=== PATIENT | female | born 1985 | race Caucasian/White ===

== ENCOUNTER 2017-05-31 22:16 | Emergency (ER) | payer OTHER ==
[~2017-05-31] VITALS: Ht 157.5 cm; Wt 56.7 kg
[2017-05-31] MEDS ORDERED: BACTRIM DS TAB1 EACH PO (22:50)
[2017-05-31] MEDS ORDERED: KEFLEX500 M1 PO (22:50)
[2017-05-31 23:11] VITALS: BP 118/68
== END 2017-05-31 23:11 | disposition home or self-care (01) ==
LOC: M.ERS 22:16
DX: L03.113 Cellulitis of right upper limb (principal); F17.210 Nicotine dependence, cigarettes, uncomplicated

== ENCOUNTER 2017-11-23 12:49 | Emergency (ER) | payer OTHER ==
[~2017-11-23] VITALS: Ht 157.5 cm; Wt 54.4 kg
[~2017-11-23 12:49] MED LIST: BACTRIM DS TAB1 EACH PO; KEFLEX500 M1 PO
[2017-11-23 14:04] VITALS: BP 112/69
== END 2017-11-23 14:06 | disposition home or self-care (01) ==
LOC: M.ERS 12:49
DX: S16.1XXA Strain of muscle, fascia and tendon at neck level, initial encounter (principal); M54.6 Pain in thoracic spine; F17.210 Nicotine dependence, cigarettes, uncomplicated; V89.2XXA Person injured in unspecified motor-vehicle accident, traffic, initial encounter; Y93.89 Activity, other specified; Y92.89 Other specified places as the place of occurrence of the external cause; Y99.8 Other external cause status

== ENCOUNTER 2021-03-20 07:48 | Emergency (ER) | payer OTHER ==
[~2021-03-20] VITALS: Ht 157.5 cm; Wt 65.8 kg
[2021-03-20 08:54] LABS: ABSOLUTE BASOPHILS 0.1 thou/uL (0.0-0.2); ABSOLUTE EOSINOPHILS 0.2 thou/uL (0.0-0.7); ABSOLUTE LYMPHOCYTES 1.8 thou/uL (0.8-5.3); ABSOLUTE MONOCYTES 0.5 thou/uL (0.0-1.2); ABSOLUTE NEUTROPHILS 5.6 thou/uL (1.6-8.1); BASOPHILS 0.7 %; EOSINOPHILS 2.4 %; HEMATOCRIT 40.6 % (37.0-47.0); HEMOGLOBIN 13.8 gm/dL (12.0-15.0); LYMPHOCYTES 21.8 %; MCH 31.9 pg (26.0-34.0); MCHC 34.1 g/dL (28.0-37.0); MCV 93.7 fL (80.0-100.0); MONOCYTES 5.8 %; MPV 11.6 fl. (7.2-11.1); NUCLEATED RBCS 0 /100WBC; PLATELET COUNT* 196 thou/uL (150-400); POLYS 69.3 %; RBC 4.33 mil/uL (4.20-5.00); RDW-CV 12.3 % (10.5-14.5); WBC 8.1 thou/uL (4.0-11.0)
[2021-03-20 08:59] LABS: CALCIUM 8.4 mg/dL (8.5-10.1); CREATININE 0.5 mg/dL (0.6-1.3); POTASSIUM 4.2 mmol/L (3.5-5.1)
[2021-03-20 09:04] LABS: ALBUMIN 3.5 g/dL (3.4-5.0); TOTAL BILIRUBIN 0.6 mg/dL (<0.1-1.0); TOTAL PROTEIN 7.7 g/dL (6.4-8.2)
[2021-03-20 11:35] VITALS: BP 126/84
== END 2021-03-20 11:51 | disposition home or self-care (01) ==
LOC: M.ERS 07:48
PROVIDERS: Family Medicine
DX: O20.0 Threatened abortion (principal); Z3A.01 Less than 8 weeks gestation of pregnancy

== ENCOUNTER 2021-04-28 08:55 | Emergency (ER) | payer MEDICAID, OTHER ==
[~2021-04-28] VITALS: Ht 157.5 cm; Wt 68.0 kg
[2021-04-28] MEDS ORDERED: PRENATAL PO (09:16)
[2021-04-28] MEDS ORDERED: PROGESTERON PO (09:16)
[2021-04-28] MEDS ORDERED: ENBRACE HR SOF1 EACH PO (09:16)
[2021-04-28 09:39] LABS: URINE BILIRUBIN NEGATIVE (Negative); URINE BLOOD 2+ (Negative); URINE CLARITY CLEAR; URINE COLOR YELLOW; URINE GLUCOSE-RANDOM NEGATIVE (Negative); URINE KETONES NEGATIVE (Negative); URINE LEUKOCYTES NEGATIVE (Negative); URINE NITRITE NEGATIVE (Negative); URINE PROTEIN NEGATIVE (Negative); URINE SPECIFIC GRAVITY 1.025 (1.005-1.030); URINE UROBILINOGEN 0.2 E.U./dl (0.2-1.0)
[2021-04-28 09:53] LABS: ABSOLUTE EOSINOPHILS 0.2 thou/uL (0.0-0.7); EOSINOPHILS 2.8 %
[2021-04-28 09:55] LABS: ABSOLUTE BASOPHILS 0.1 thou/uL (0.0-0.2); ABSOLUTE LYMPHOCYTES 2.1 thou/uL (0.8-5.3); ABSOLUTE MONOCYTES 0.5 thou/uL (0.0-1.2); ABSOLUTE NEUTROPHILS 5.7 thou/uL (1.6-8.1); BASOPHILS 0.6 %; HEMOGLOBIN 13.4 gm/dL (12.0-15.0); LYMPHOCYTES 24.3 %; MCHC 34.2 g/dL (28.0-37.0); MCV 93.6 fL (80.0-100.0); MONOCYTES 5.7 %; MPV 10.9 fl. (7.2-11.1); NUCLEATED RBCS 0 /100WBC; PLATELET COUNT* 212 thou/uL (150-400); POLYS 66.6 %; RBC 4.17 mil/uL (4.20-5.00); RDW-CV 12.4 % (10.5-14.5); WBC 8.5 thou/uL (4.0-11.0)
[2021-04-28 09:55] LABS: SQUAMOUS 4-10 Moderate /LPF (0-3)
[2021-04-28 10:05] LABS: CASTS None Seen /LPF (None Seen); URINE WBC None Seen /HPF (0-5)
[2021-04-28 10:06] LABS: BACTERIA 1-9 Few /HPF (None Seen); CRYSTALS None Seen /LPF (None Seen); URINE RBC 0-2 Rare /HPF (0-2)
[2021-04-28 10:27] LABS: ALBUMIN 3.2 g/dL (3.4-5.0); CALCIUM 8.8 mg/dL (8.5-10.1); CREATININE 0.5 mg/dL (0.6-1.3); POTASSIUM 3.7 mmol/L (3.5-5.1); TOTAL BILIRUBIN 0.4 mg/dL (<0.1-1.0); TOTAL PROTEIN 7.1 g/dL (6.4-8.2)
[2021-04-28] MEDS ORDERED: CEPHALEXIN500 MG PO (11:21)
[2021-04-28] MEDS ORDERED: CLINDAMYCIN HC300 MG PO (11:31)
[2021-04-28 11:45] VITALS: BP 106/55
== END 2021-04-28 11:45 | disposition home or self-care (01) ==
LOC: M.ERS 08:55
PROVIDERS: Emergency Medicine Emergency Medical Services
DX: O23.591 Infection of other part of genital tract in pregnancy, first trimester (principal); O20.0 Threatened abortion; B96.89 Other specified bacterial agents as the cause of diseases classified elsewhere; Z3A.13 13 weeks gestation of pregnancy; Z79.899 Other long term (current) drug therapy